=== PATIENT | female | born 1990 ===

== ENCOUNTER 2022-02-16 05:21 | Emergency (ER) | payer SELFPAY ==
[2022-02-16 05:24] VITALS: BP 160/109
--- NOTE | 2022-02-17 14:40 | Electrocardiograph Report ---
[facility] Test Date: 2022-02-16 Test Time: 05:27:33 Pat Name: DARÍO AVALOS Department: Room: Gender: F [employer] Operator: ADDI : 1990 Requested By: ED DOC Order Number: [id number] Reading MD: Gerald Mar Measurements Intervals [place] Rate: 125 P: 64 GA: 162 QRS: 76 QRSD: 76 T: 25 QT: 305 QTc: 440 Interpretive Statements Sinus tachycardia Probable left atrial enlargement No previous ECG available for comparison Electronically Signed On 02-17-2022 14:40:23 EDT by Gerald Mar
== END 2022-02-17 09:01 | disposition left against medical advice (07) ==
LOC: ED 05:21
DX: R07.89 Other chest pain (principal); Z53.21 Procedure and treatment not carried out due to patient leaving prior to being seen by health care provider
CPT/HCPCS: 93005